=== PATIENT | female | born 1970 | race Caucasian/White ===

== ENCOUNTER 2024-07-14 13:28 | Emergency (ER) | payer OTHER ==
[~2024-07-14] VITALS: Ht 154.9 cm; Wt 61.8 kg
[2024-07-14 13:46] VITALS: O2SAT 98
[2024-07-14] MEDS: LIDOCAINE 5% PATCH TOP SCH (14:52)
[2024-07-14] MEDS ORDERED: LIDO700A30 TP (15:42)
[2024-07-14 15:50] VITALS: BP 127/70; PULSE 50; RESP 18; TEMP 36.8; O2SAT 98
== END 2024-07-14 15:51 | disposition home or self-care (01) ==
LOC: ER 13:28
DX: M25.512 Pain in left shoulder (principal); I10 Essential (primary) hypertension; Z98.890 Other specified postprocedural states; Z88.6 Allergy status to analgesic agent
CPT/HCPCS: 73030; 73140; 99284